=== PATIENT | male | born 1980 | race American Indian/Alaskan Native ===

== ENCOUNTER 2021-03-07 19:48 | Emergency (ER) | payer BC ==
[2021-03-07 21:13] VITALS: BP 118/82
[2021-03-07 21:58] LABS: Basophils % (Auto) 0.6 % (0.0-1.8); Eosinophils # (Auto) 0.1 K/mm3 (0.0-0.4); Eosinophils % (Auto) 1.7 % (0.0-4.3); Hematocrit 43.5 % (35.5-45.6); Hemoglobin 14.7 gm/dl (11.8-15.2); Lymphocytes # (Auto) 3.6 K/mm3 (1.2-5.4); Lymphocytes % (Auto) 51.8 % (13.4-35.0); Mean Corpuscular HGB Conc 34 % (32-34); Mean Corpuscular Volume 95 fl (84-94); Monocytes # (Auto) 0.6 K/mm3 (0.0-0.8); Monocytes % (Auto) 8.7 % (0.0-7.3); Red Blood Count 4.58 M/mm3 (3.65-5.03); Red Cell Distribution Width 13.7 % (13.2-15.2)
[2021-03-07 21:59] LABS: Platelet Count 107 K/mm3 (140-440)
[2021-03-07 22:21] LABS: Alanine Aminotransferase 60 units/L (7-56); Albumin 4.2 g/dL (3.9-5); BUN/Creatinine Ratio 8; Blood Urea Nitrogen 8 mg/dL (9-20); Calcium 9.2 mg/dL (8.4-10.2); Hemolysis Index 7
[2021-03-07 23:00] LABS: Bilirubin,Urine NEG (Negative); Blood,Urine NEG (Negative); Color,Urine Yellow (Yellow); Mucus,Urine FEW /HPF; Protein,Urine <15 mg/dL mg/dL (Negative); Urobilinogen,Urine < 2.0 mg/dL (<2.0)
[2021-03-08] MEDS ORDERED: FAMOTIDINE 20 MG/2 ML INJ IV ONE (01:58)
[2021-03-08] MEDS ORDERED: ONDANSETRON 4 MG/2 ML INJ IV ONE (01:58)
[2021-03-08] MEDS ORDERED: SODIUM CHLORIDE 0.9% 1000 ML 1,000 ML IV ONE (01:58)
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
--- NOTE | 2021-03-08 08:35 | Electrocardiograph Report ---
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
== END 2021-03-08 07:00 | disposition home or self-care (01) ==
LOC: ED 19:48
DX: K52.9 Noninfective gastroenteritis and colitis, unspecified (principal); K21.9 Gastro-esophageal reflux disease without esophagitis; Z79.899 Other long term (current) drug therapy
CPT/HCPCS: 36415; 71045; 80053; 81001; 84484; 85025; 93005; 96361; 96374; 96375; 99284; J2405; J7030

== ENCOUNTER 2021-05-26 16:56 | Emergency (ER) | payer BC ==
[2021-05-26 19:19] VITALS: BP 143/65
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
[2021-05-26 19:50] LABS: Bilirubin,Urine NEG (Negative); Blood,Urine NEG (Negative); Color,Urine Colorless (Yellow); Protein,Urine <15 mg/dL mg/dL (Negative); RBC,Urine < 1.0 /HPF (0.0-6.0); Urobilinogen,Urine < 2.0 mg/dL (<2.0); WBC,Urine < 1.0 /HPF (0.0-6.0)
== END 2021-05-26 21:00 | disposition home or self-care (01) ==
LOC: ED 16:56
DX: R35.0 Frequency of micturition (principal); Z79.899 Other long term (current) drug therapy
CPT/HCPCS: 81001; 82962

== ENCOUNTER 2021-06-09 13:44 | Emergency (ER) | payer BC ==
[2021-06-09 15:41] VITALS: BP 144/76
[2021-06-09] MEDS ORDERED: IBUPROFEN 800 MG TAB PO STA (17:10)
[2021-06-09] MEDS ORDERED: ACETAMINOPHEN 500 MG TAB PO STA (17:10)
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
== END 2021-06-09 17:30 | disposition home or self-care (01) ==
LOC: ED 13:44
DX: K04.7 Periapical abscess without sinus (principal); Z79.899 Other long term (current) drug therapy; Z98.890 Other specified postprocedural states
CPT/HCPCS: 99282